=== PATIENT | male | born 1960 | race Caucasian/White ===

== ENCOUNTER 2021-02-03 07:00 | Emergency (ER) | payer MEDICARE ==
[2021-02-03] MEDS ORDERED: HYDROCODON-ACE1 EAC4 PO (09:08)
== END 2021-02-03 11:00 | disposition home or self-care (01) ==
LOC: ER1 07:00
DX: S43.102A Unspecified dislocation of left acromioclavicular joint, initial encounter (principal); S00.81XA Abrasion of other part of head, initial encounter; I10 Essential (primary) hypertension; E11.40 Type 2 diabetes mellitus with diabetic neuropathy, unspecified; K21.9 Gastro-esophageal reflux disease without esophagitis; W18.30XA Fall on same level, unspecified, initial encounter
CPT/HCPCS: 70450; 73030; 99284

== ENCOUNTER → 2021-04-05 | Outpatient (CLI) | payer MEDICARE ==
[~2021-04-05] MED LIST: HYDROCODON-ACE1 EAC4 PO
== END ==
LOC: WCC 08:59
DX: S80.811A Abrasion, right lower leg, initial encounter (principal); R60.0 Localized edema; E11.622 Type 2 diabetes mellitus with other skin ulcer; E11.40 Type 2 diabetes mellitus with diabetic neuropathy, unspecified; I10 Essential (primary) hypertension; E66.01 Morbid (severe) obesity due to excess calories
CPT/HCPCS: G0463

== ENCOUNTER → 2021-04-16 | Outpatient (CLI) | payer MEDICARE | LOC: EXRD 04-09 14:30 | DX: R60.0 Localized edema (principal) | CPT/HCPCS: 93925 ==

== ENCOUNTER → 2021-04-24 | Outpatient (CLI) | payer MEDICARE | LOC: HEART 5 10:55 | DX: R60.0 Localized edema (principal); Z88.0 Allergy status to penicillin; Z88.1 Allergy status to other antibiotic agents | CPT/HCPCS: 93970 ==

== ENCOUNTER → 2022-01-20 | Outpatient (CLI) | payer MEDICARE | LOC: RAD 10:31 → EDSTATUS 12:32 | DX: M25.562 Pain in left knee (principal) | CPT/HCPCS: 73562 ==

== ENCOUNTER → 2022-01-28 | Outpatient (CLI) | payer MEDICARE | LOC: RAD 11:37 | DX: D72.10 Eosinophilia, unspecified (principal) | CPT/HCPCS: 71046 ==